=== PATIENT | female | born 1965 | race Caucasian/White ===

== ENCOUNTER → 2018-02-10 11:50 | Outpatient (CLI) | payer OTHER, SELFPAY ==
--- NOTE | 2018-02-10 | DI.CT.S_ITS ---
PROCEDURE: CT ABDOMEN PELVIS W CON INDICATIONS: Left lower quadrant pain TECHNIQUE: After the administration of oral and intravenous contrast, 5 mm thick sections acquired from the diaphragms to the symphysis. 5 mm thick coronal and sagittal reformats were performed. For radiation dose reduction, the following was used: automated exposure control, adjustment of mA and/or kV according to patient size. COMPARISON: None. FINDINGS: Image quality: Excellent. ABDOMEN: Lung bases: Lung bases are clear. Heart size is normal. Solid organs: Liver is normal in size and enhancement. Gallbladder appears normal. Biliary system is non-dilated. Pancreas enhances normally. Spleen is normal in size and enhancement. No adrenal nodules. Kidneys are normal in size and enhancement, without hydronephrosis. Peritoneum and bowel: Stomach, small bowel, and colon loops are normal in caliber and wall thickness. No free fluid or air. Nodes and vessels: No retroperitoneal or mesenteric adenopathy. Aorta and inferior vena cava are normal in caliber. Miscellaneous: No ventral hernias. PELVIS: Genitourinary: Bladder wall thickness is normal. The uterus appears enlarged, heterogeneous, lobulated peripherally and appears to contain multiple uterine fibroids within the myometrium. Uterus measures up to 11.2 cm AP, 8.8 cm transverse and up to 6.9 cm craniocaudad. At the posterior aspect of the uterus there is a 2.9 cm area of low attenuation and greater heterogeneity in the expected position of the junction between the uterine margin in the cervix. The exact anatomy in this area is very difficult to accurately assess due to to distortion by multiple fibroids and the possibility of an endometrial or cervical mass superimposed. What appears to be a cyst at the right ovary can be seen, measuring approximately 2.9 cm AP and 1.6 cm transverse. The left ovary is not discretely identified. Miscellaneous: No inguinal hernias or adenopathy. The sigmoid colon can be seen traversing through the pelvis on the left, displaced laterally by the uterine enlargement, and diverticulitis involving the left colon is not suspected. Bones: No suspicious bony lesions. No vertebral body compression fractures. IMPRESSION: 1. The uterus appears enlarged, heterogeneous, lobulated, and likely contains multiple uterine fibroids in addition to a possible cervical or endometrial mass. Pelvic ultrasound is recommended for more accurate assessment and given the degree of distortion seen pelvic MRI and/or gynecological surgical consultation may be warranted at this time. 2. The sigmoid colon can be seen traversing through the pelvis shifted leftward by the uterine enlargement, and no acute diverticulitis as cause of the reported left-sided pelvic pain is found. 3. Left ovary not seen, with what appears to be a cyst at the right ovary measuring 1.6 x 2.9 cm is seen. Note: These findings were called to the ordering health care provider and a voicemail was left for review. The ordering health care provider could not be directly contacted for further discussion but I have left by pager number should the provider wish to discuss these findings in greater detail. Dictated by: Rayshawn Torres M.D. on 02/10/2018 at 13:52 Approved by: Rayshawn Torres M.D. on 02/10/2018 at 14:03
== END ==
PROVIDERS: PCP Nurse Practitioner Family; Visit Provider Nurse Practitioner Family
DX: R10.32 Left lower quadrant pain (principal); N85.2 Hypertrophy of uterus; D25.9 Leiomyoma of uterus, unspecified
CPT/HCPCS: 74177

== ENCOUNTER 2018-03-24 08:23 | Day surgery (SDC) | payer OTHER, SELFPAY ==
[2018-03-22 10:28] VITALS: BMI 22.4
[2018-03-24] VITALS (8 sets, daily range): BP systolic 129–148; BP diastolic 82–96; PULSE 76–85; RESP 12–16; TEMP 35.9–36.3; O2SAT 97–100; BMI 22.4
--- NOTE | 2018-03-24 | PATH_ITS ---
[facility] Accession Number: [id number] . 01 Material submitted: . UTERUS AND FALLOPIAN TUBES . 02 Diagnosis: Uterus and Fallopian Tubes, Laparoscopic Supracervical Hysterectomy with Bilateral Salpingectomy (Weight 136 grams, Morcellated Specimen): Late secretory endometrium; negative for glandular hyperplasia, cytologic atypia, and malignancy. 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 Uterine serosa focally present; it is difficult to completely exclude involvement by endometriosis due to poor tissue orientation. [place] segment of fallopian tube with benign paratubal cysts (approximately 1-2 mm in greatest dimension). Longer segment of fallopian tube with no diagnostic abnormality. MRV/03/27/2018 . 02 Electronically signed: . Liudmila Ortiz MD, Pathologist NPI- [id number] . 01 Gross description: . Received in formalin, labeled with the patient's name and uterus and fallopian tubes, is a 136 g, 14.5 x 13.5 x 8.0 cm aggregate of morcellated uterine and adnexal fragments. The serosal surfaces are sandoval and smooth. The endometrium is brown-sandoval, glistening, and averages less than 0.1 cm in thickness. The myometrium is sandoval-brown and moderately trabeculated. In the myometrium are numerous fragments of white, whorled nodules. These nodules comprise approximately 70% of total cut surfaces. Also in this aggregate are two fimbriated fallopian tubes which are 2.5 x 0.5 cm and 4.5 x 0.6 cm. The fallopian tubes have shaggy, brown-maier serosal surfaces. The shorter fallopian tube is inked blue. Sectioning through both fallopian tubes reveals pinpoint lumens. [employer] sections are submitted as follows: (A1) endomyometrium; (A2, A3) intramural nodules; (A4) serosa; (A5) pharmaceutical sales representative sections of both of the fallopian tubes. ([id number]) /FRR . 02 Pathologist provided ICD-10: D25.9 . 02 CPT . 239468 Performed at: 01 [facility] [address] [address], [place], [place] [id number] MD Denis Casper MD Phone: [phone] Performed at: 02 [facility] [address] [address] [place], [place] [id number] MD Erinn Man MD Phone: [phone]
[2018-03-24] MEDS: LACTATED RINGERS 1,000 ML 100 ML IV (08:45)
[2018-03-24] MEDS: APREPITANT 40 MG CAPSULE PO (09:20)
[2018-03-24] MEDS: CEFAZOLIN 2 GM/100 ML FROZ.PIGGY IV (09:40)
--- NOTE | 2018-03-24 10:31 | SUR.OPER ---
Lithotomy on padded OR bed. Stokes Pad Positioner under torso. Head on pillow, arms padded and tucked at sides. Legs secured in padded yellow fins stirrups.
[2018-03-24] MEDS: BUPIVACAINE 0.5% W/ EPI (PF) VIAL 30 ML INJ (10:42)
--- NOTE | 2018-03-24 11:45 | PM.PREOP ---
Pre-operative Note Interval Note Pre-op Check: Yes History & Physical exam performed today by Physician Changes: No
--- NOTE | 2018-03-24 12:04 | SUR.PHASEI ---
Report given to Alden Fleming RN.
[2018-03-24] MEDS: OXYCODONE/ACETAMINOPHEN 5/325 TABLET 1 TAB PO (12:30)
--- NOTE | 2018-03-24 12:47 | SUR.PHASEII ---
On discharge some confusion noted on part of patient, but quite verse on discharge orders.
--- NOTE | 2018-03-25 17:02 | PM.HP.1 ---
History of Present Illness Date Patient Seen: 03/24/18 Time Patient Seen: 09:30 Chief complaint: [id number] [facility] W/RAISA SALPINGECTOMY Narrative: Patient is a 52-year-old with an enlarged fibroid uterus, menorrhagia, and dysmenorrhea here for laparoscopic supracervical hysterectomy and bilateral salpingectomy Patient History Medical History Anemia (Acute) Fibroid uterus (Acute) History of endometrial biopsy (Acute) Menorrhagia (Acute) Family & Social History Social History: household members spouse Tobacco & Substance use: Smoking Status Never smoker Meds Home Medications Medication Instructions Recorded Confirmed Type Progesterone Cream VAG 03/13/18 03/13/18 History ferrous sulfate 325 mg (65 mg 325 mg PO DAILY tab 03/13/18 03/24/18 History iron) tablet progesterone micronized 100 mg 200 mg PO BEDTIME 03/13/18 03/24/18 History capsule Vitamin C 1,000 mg DAILY 03/24/18 03/24/18 History magnesium 2 tsp DAILY 03/24/18 03/24/18 History Allergies Allergy/AdvReac Type Severity Reaction Status Date / Time No Known Drug Allergies Allergy Unverified 03/13/18 16:29 Exam Vital Signs (past 8 hours): Oxygen Delivery Method Room Air Narrative Exam Narrative: HEENT: No thyromegaly, no anterior cervical or supraclavicular lymphadenopathy. Lungs:Clear to auscultation bilaterally, no wheezes. Cardiovascular: Regular rate and rhythm, no murmurs, rubs, or gallops. Abdomen: No scars. No hepatosplenomegaly. No masses palpable. External genitalia: Normal Vagina: Normal Cervix: [Normal] Bimanual exam: 10 Week size uterus. Mobile. Rectal: [No masses]. Assessment & Plan (1) Fibroid uterus: Current visit: No Status: Acute (2) Premenopausal menorrhagia: Current visit: No Status: Acute (3) Secondary dysmenorrhea: Current visit: No Status: Acute Plan: Assessment/Plan Narrative: Assessment: 52-year-old with an enlarged fibroid uterus, menorrhagia, and dysmenorrhea Plan: Laparoscopic supracervical hysterectomy and bilateral salpingectomy The risks, benefits, and alternatives to the procedure were explained to the patient. The risks including bleeding, infection, injury to the bowel, bladder, or ureters. She also understands that there is a risk of an open procedure. She understands these risks and agrees to proceed. A full PAR-Q was held and consent form was signed.
--- NOTE | 2018-03-25 17:06 | P.HP_ITS ---
History of Present Illness Date Patient Seen: 03/24/18 Time Patient Seen: 09:30 Chief complaint: [id number] [facility] W/RAISA SALPINGECTOMY Narrative: Patient is a 52-year-old with an enlarged fibroid uterus, menorrhagia , and dysmenorrhea here for laparoscopic supracervical hysterectomy and bilateral salpingectomy Patient History Medical History Anemia (Acute) Fibroid uterus (Acute) History of endometrial biopsy (Acute) Menorrhagia (Acute) Family & Social History Social History: household members spouse Tobacco & Substance use: Smoking Status Never smoker Meds Home Medications Medication Instructions Recorded Confirmed Type Progesterone Cream VAG 03/13/18 03/13/18 History ferrous sulfate 325 mg (65 mg 325 mg PO DAILY tab 03/13/18 03/24/18 History iron) tablet progesterone micronized 100 mg 200 mg PO BEDTIME 03/13/18 03/24/18 History capsule Vitamin C 1,000 mg DAILY 03/24/18 03/24/18 History magnesium 2 tsp DAILY 03/24/18 03/24/18 History Allergies Allergy/AdvReac Type Severity Reaction Status Date / Time No Known Drug Allergies Allergy Unverified 03/13/18 16:29 Exam Vital Signs (past 8 hours): Oxygen Delivery Method Room Air Narrative Exam Narrative: HEENT: No thyromegaly, no anterior cervical or supraclavicular lymphadenopathy. Lungs:Clear to auscultation bilaterally, no wheezes. Cardiovascular: Regular rate and rhythm, no murmurs, rubs, or gallops. Abdomen: No scars. No hepatosplenomegaly. No masses palpable. External genitalia: Normal Vagina: Normal Cervix: [Normal] Bimanual exam: 10 Week size uterus. Mobile. Rectal: [No masses]. Assessment & Plan (1) Fibroid uterus: Current visit: No Status: Acute (2) Premenopausal menorrhagia: Current visit: No Status: Acute (3) Secondary dysmenorrhea: Current visit: No Status: Acute Plan: Assessment/Plan Narrative: Assessment: 52-year-old with an enlarged fibroid uterus, menorrhagia, and dysmenorrhea Plan: Laparoscopic supracervical hysterectomy and bilateral salpingectomy The risks, benefits, and alternatives to the procedure were explained to the patient. The risks including bleeding, infection, injury to the bowel, bladder , or ureters. She also understands that there is a risk of an open procedure. She understands these risks and agrees to proceed. A full PAR-Q was held and consent form was signed.
--- NOTE | 2018-03-25 17:06 | PM.GYNOP.1 ---
Operative Date/Time/Diagnoses Date of procedure: 03/24/18 Time of procedure: 09:30 Pre-op diagnosis: Enlarged fibroid uterus Menorrhagia Dysmenorrhea Post-op diagnosis: same Procedure: Procedures Operation Date: 03/24/18 09:30 Actual Procedures Side Surgeon p Laparoscopic Supracervical Hysterectomy w/Bilat Salpingectomy Britney Cassidy MD Indications: Enlarged fibroid uterus Menorrhagia Dysmenorrhea Surgeon: Britney Cassidy Anesthesia Type: General Operative Notes Findings: 10 week size multi fibroid uterus Large fibroid in the lower uterine segment anteriorly Large fibroid in the fundus posteriorly Normal tubes and ovaries Normal liver, gallbladder, and appendix Closure Type: primary Specimen(s): left tube, right tube and uterus Applied: catheter (Removed at the end of the case) Estimated blood loss (mL): 150 Blood products transfused: none Procedure in detail: The patient was taken to the operating room where she was placed in the dorsal supine position. After adequate general endotracheal anesthesia was achieved, she was placed in the dorsal lithotomy position, and prepped and draped in the usual sterile fashion. A timeout was performed. A bivalve speculum was placed into the vagina and the anterior lip of the cervix grasped with a single-tooth tenaculum. The cervical os was sequentially dilated until the ZUMI uterine manipulator could pass easily into the endometrial cavity. The single-tooth tenaculum was removed from the anterior lip of the cervix, and the bivalve speculum was removed from the vagina. Attention was then turned to the abdomen where 6 mL of half percent Marcaine with epinephrine were injected in the umbilical fold. A 5 mm incision was made. The Verhees needle was placed into the peritoneal cavity, and its placement confirmed by aspiration and drop test. The Verhees needle was removed. A 5 mm trocar was placed without difficulty. 2 other incisions were made 4 cm lateral to the umbilicus on either side after 5 mL of half percent Marcaine with epinephrine were injected. These were 5 mm incisions. Two 5 mm trochars were placed under direct visualization. The right tube was grasped with an atraumatic grasper. Using the plasma kinetic with settings of 40 W the mesosalpinx was cauterized and cut all the way down to the cornua of the uterus. The cornua of the uterus was then grasped with an atraumatic grasper. The utero-ovarian ligaments were cauterized and cut. The round ligament and broad ligament was cauterized and cut with plasma kinetic. Hemostasis was achieved. The bladder flap was created using the plasma kinetic with cautery and cut care home across. The uterine arteries on the right side were extensively cauterized with plasma kinetic. All of this was repeated on the left side. The remainder of the bladder flap was created using the plasma kinetic, and the bladder taken down off the lower uterine segment and cervix. Using the L[place]oop, the cervix was amputated from the uterus 2 cm above the uterosacral ligaments, after the ZUMI uterine manipulator was removed from the uterus. There was a small amount of bleeding noted from the posterior edge of the cervix and the right edge of the cervix, and this was cauterized for hemostasis. A sponge stick was placed into the vagina. 6 mL of half percent Marcaine with epinephrine were injected above the pubic symphysis. A 12 mm trocar was placed and removed. An Endobag was placed through the suprapubic incision and the uterus placed into the Endobag. The edges of the bag were brought up through the skin incision. The Benny was placed into the endobag. The uterus was hand morcellated in approximately 20 pieces. The Endobag was removed from the peritoneal cavity. The pelvis was copiously irrigated with warm normal saline. No bleeding was noted. 20 cc of 0.2% ropivacaine were placed over the pedicles. The instruments were removed from the abdomen. The CO2 was allowed to escape. The suprapubic incision was closed on the fascia with 0 Vicryl. The subcutaneous layer was closed with 2 simple interrupted sutures with 3 0 Vicryl. All of the incisions were closed with 4-0 undyed Vicryl in a subcuticular fashion. Steri-Strips were placed over the incision. 2 x 2 was an op site were placed over the incisions. The moistened sponge stick was removed from the vagina. Sponge, lap, and instrument counts were correct x-2. The patient tolerated the procedure well, was taken to PACU in stable condition. Complications: none Post-operative Condition: stable Disposition: PACU Plan for aftercare: Home after recovery
== END 2018-03-24 13:32 | disposition home or self-care (01) ==
PROVIDERS: PCP Nurse Practitioner Family; Visit Provider Obstetrics & Gynecology
PROC: 0UT94ZL Resection of Uterus, Supracervical, Percutaneous Endoscopic Approach (ICD-10-PCS; CPT 58542; principal; 2018-03-24 09:30)
DX: D25.9 Leiomyoma of uterus, unspecified (principal); N94.5 Secondary dysmenorrhea; N92.4 Excessive bleeding in the premenopausal period; D64.9 Anemia, unspecified
CPT/HCPCS: 58542; J0690; J1100; J1885; J2250; J2405; J2704; J3010; J8501